=== PATIENT | female | born 1955 | race Caucasian/White ===

== ENCOUNTER → 2023-11-24 | Emergency (ER) | payer BC, OTHER ==
[~2023-11-24] MED LIST: CEFTRIAXONE 1000 MG/VIAL ONE; HYDROCODONE/APAP 10/325 TAB ONE; NA CHLORIDE 0.9% 50 ML ONE; ONDANSETRON 4 MG (ODT) TAB ONE; SMZ./TMP. 800/160 MG TABLET ONE
[2023-11-25 01:01] LABS: Absolute Lymphocytes (CBC) 0.8 K/uL (0.7-4.9); Hematocrit 23.8 % (36.0-45.0); Lymphocytes % 11.7 % (15.3-44.8); MCV 87.8 fL (80-100); MPV 7.2 fL (7.6-11.3); Platelets 194 thou/uL (152-406); RBC Red Blood Cell Count 2.71 M/uL (3.86-4.86)
[2023-11-25 01:03] LABS: Albumin 3.1 g/dL (3.4-5.0); Bilirubin Direct 0.2 mg/dL (0-0.2); Bilirubin Indirect, Calculated 0.3 mg/dL (0.2-0.8); Bilirubin Total 0.5 mg/dL (0.2-1.0); Potassium 3.6 mEq/L (3.5-5.1); Protein, Total 6.1 g/dL (6.4-8.2)
--- NOTE | 2023-11-25 01:50 | ER ---
Nurse's Notes [facility] Name: Clare Shah Age: 68 yrs Sex: Female : 1955 Arrival Date: 11/24/2023 Time: 23:40 Bed 14 Private MD: Diagnosis: Postoperative incisional pain, bilateral breast reduction with postoperative pain, postoperative incision cellulitis. Presentation: 11/24 23:50 Chief complaint: EMS states: patient had breast cancer surgery on Friday. This evening, tm6 site became tender to the touch, red, and hot. EMS temp 100.0F, BP 101/45. Coronavirus screen: Vaccine status: Client denies travel out of the [place] in the last 14 days. Ebola Screen: Patient negative for fever greater than or equal to 101.5 degrees Fahrenheit, and additional compatible Ebola Virus Disease symptoms Patient denies exposure to infectious person. Patient denies travel to an Ebola-affected area in the 21 days before illness onset. No symptoms or risks identified at this time. Initial Sepsis Screen: Does the patient meet any 2 criteria? No. Patient's initial sepsis screen is negative. Does the patient have a suspected source of infection? Yes: Skin breakdown/wound. Risk Assessment: Do you want to hurt yourself or someone else? Patient reports no desire to harm self or others. Onset of symptoms was November 24, 2023. 23:50 Method Of Arrival: EMS: [facility] tm6 23:50 Acuity: VICENTE 3 tm6 Triage Assessment: 23:56 General: Appears in no apparent distress. Behavior is calm, cooperative. Pain: tm6 Complains of pain in right breast and left breast Pain currently is 4 out of 10 on a pain scale. Aggravated by increased activity. EENT: No signs and/or symptoms were reported regarding the EENT system. Neuro: Level of Consciousness is awake, alert, obeys commands, Oriented to person, place, time, situation. Cardiovascular: Capillary refill < 3 seconds Patient's skin is warm and dry. Respiratory: Airway is patent Respiratory effort is even, unlabored, Respiratory pattern is regular, symmetrical. GI: Abdomen is round non-distended. : No signs and/or symptoms were reported regarding the genitourinary system. Derm: Skin temperature is warm Wound noted right breast and left breast Other: surgical wound Bruising that is bright red, dark purple. Musculoskeletal: No signs and/or symptoms reported regarding the musculoskeletal system. Historical: - Allergies: 23:55 Codeine; tm6 23:55 Tramadol HCl; tm6 23:55 Neosporin ([id number]); tm6 - PMHx: 23:55 breast cancer; Atrial fibrillation; tm6 - PSHx: 23:55 Cholecystectomy; tm6 23:56 gastric sleeve; ablation; Lumpectomy of breast; reduction of breast; tm6 - Immunization history:: Adult Immunizations up to date. - Social history:: Smoking status: Patient denies any tobacco usage or history of. Patient/guardian denies using alcohol. - Family history:: not pertinent. Screenin/09 00:00 [facility] ED Fall Risk Assessment (Adult) History of falling in the last 3 months, tm6 including since admission No falls in past 3 months (0 pts). Abuse screen: Denies threats or abuse. Denies injuries from another. Nutritional screening: No deficits noted. Tuberculosis screening: No symptoms or risk factors identified. Assessment: 00:00 Reassessment: see triage assessment. tm6 01:15 Reassessment: Patient and/or family updated on plan of care and expected duration. Pain tm6 level reassessed. Patient is alert, oriented x 3, equal unlabored respirations, skin warm/dry/pink. patient crying, pain at incision site. 01:58 Reassessment: Patient appears in no apparent distress at this time. Patient and/or tm6 family updated on plan of care and expected duration. Pain level reassessed. Vital Signs: 11/24 23:50 BP 134 / 43; Pulse 83; Resp 17; Temp 98.8(O); Pulse Ox 99% on R/A; Weight 99.79 kg; tm6 Height 5 ft. 5 in. ; Pain 4/10; 11/25 01:15 BP 157 / 59; Pulse 80; Pulse Ox 100% on R/A; Pain 10/10; tm6 01:58 BP 139 / 58; Pulse 83; Pulse Ox 100% ; Pain 3/10; tm6 11/24 23:50 Body Mass Index 36.61 (99.79 kg, 165.1 cm) tm6 11/24 23:50 Pain Scale: Adult tm6 11/25 01:15 Pain Scale: Adult tm6 01:58 Pain Scale: Adult tm6 ED Course: 11/24 23:49 Patient arrived in ED. tm6 23:51 [facility]liver [facility]C [facility] snw 23:51 Binu Alvarado MD is Attending Physician. snw 23:55 Triage completed. tm6 23:56 Arm band placed on right wrist. tm6 11/25 00:00 Patient has correct armband on for positive identification. Placed in gown. Bed in low tm6 position. Call light in reach. Side rails up X2. Provided Education on: plan of care. Client placed on continuous cardiac and pulse oximetry monitoring. NIBP monitoring applied. Noise minimized. 00:29 Inserted saline lock: 20 gauge in right antecubital area, using aseptic technique. tm6 00:29 surgical wound assessment. tm6 00:54 Leeann Angulo RN is Primary Nurse. tm6 02:17 IV discontinued, intact, bleeding controlled, No redness/swelling at site. Pressure tm6 dressing applied. Administered Medications: 01:14 Drug: Trimethoprim-Sulfamethoxazole PO (160 mg-800 mg (DS) 1 tablet PO once Route: PO; tm6 01:15 Drug: Rocephin - Rocephin (cefTRIAXone) IVPB 1 grams IVPB once over 30 mins; (mix in 50 tm6 mL NS) Route: IVPB; Infused Over: 30 mins; Site: right antecubital; 01:22 Drug: Ondansetron PO 4 mg PO once Route: PO; tm6 01:22 Drug: [place] PO 10 mg-325 mg 2 tabs PO once Route: PO; tm6 Medication: 00:00 VIS not applicable for this client. tm6 Outcome: 01:49 Discharge ordered by . sp4 02:16 Discharged to home ambulatory, waiting in [facility] for family tm6 02:16 Condition: stable 02:16 Discharge instructions given to patient, Instructed on discharge instructions, follow up and referral plans. medication usage, Demonstrated understanding of instructions, follow-up care, medications, Prescriptions given X 1, 02:17 Patient left the ED. tm6 Signatures: Shanelle Tolliver FNP-C [employer]ER-Csnw Binu Alvarado MD MD spLeeann Walters, ROBERTO RN tm6 Corrections: (The following items were deleted from the chart) 11/24 23:56 PMHx: gastric sleeve; tm6 tm6 23:56 PMHx: ablation; tm6 tm6
--- NOTE | 2023-11-25 01:50 | EDPHYS ---
Physician Documentation [facility] Name: Clare Shah Age: 68 yrs Sex: Female : 1955 Arrival Date: 11/24/2023 Time: 23:40 Bed 14 Private MD: ED Physician Binu Alvarado HPI: 11/24 23:53 This 68 yrs old Female presents to ER via Unassigned with complaints of Post sp4 Surgical Pain - concern for infection. 23:53 Pleasant 68-year-old female with history of bilateral mastectomy with breast reduction sp4 on 11/21/2023, presents with worsening bilateral pain and skin redness to bilateral breast reduction sites. Patient states that she developed a redness and worsening pain today after she was cleaning with soap and water.. Patient takes cephalexin 4 times a day postoperative antibiotic. Surgery was done at [facility]. Patient apparently 4 days postop. . Historical: - Allergies: 23:55 Codeine; tm6 23:55 Tramadol HCl; tm6 23:55 Neosporin ([id number]); tm6 - PMHx: 23:55 breast cancer; Atrial fibrillation; tm6 - PSHx: 23:55 Cholecystectomy; tm6 23:56 gastric sleeve; ablation; Lumpectomy of breast; reduction of breast; tm6 - Immunization history:: Adult Immunizations up to date. - Social history:: Smoking status: Patient denies any tobacco usage or history of. Patient/guardian denies using alcohol. - Family history:: not pertinent. ROS: 23:53 Constitutional: Negative for fever, chills, and weight loss, positive bilateral breast sp4 postoperative pain and bilateral skin redness 23:53 All other systems are negative, Exam: 23:53 Constitutional: This is a well developed, well nourished patient who is awake, alert, sp4 and in no acute distress. Head/Face: Normocephalic, atraumatic. Eyes: Pupils equal round and reactive to light, extra-ocular motions intact. Lids and lashes normal. Conjunctiva and sclera are not injected. Cornea within normal limits. Periorbital areas with no swelling, redness, or edema. ENT: Nares patent. No nasal discharge, no septal abnormalities noted. Tympanic membranes are normal and external auditory canals are clear. Oropharynx with no redness, swelling, or masses, exudates, or evidence of obstruction, uvula midline. Mucous membranes moist. Neck: Trachea midline, no thyromegaly or masses palpated, and no cervical lymphadenopathy. Supple, full range of motion without nuchal rigidity, or vertebral point tenderness. Chest/axilla: Normal chest wall appearance and motion. Nontender with no deformity. Bilateral breast reduction sites. Bilateral post operative incisional redness, swelling, bilateral post operative hematomas. Cardiovascular: Regular rate and rhythm with a normal S1 and S2. No gallops, murmurs, or rubs. Normal PMI, no JVD. No pulse deficits. Respiratory: Lungs have equal breath sounds bilaterally, clear to auscultation and percussion. No rales, rhonchi or wheezes noted. No increased work of breathing, no retractions or nasal flaring. Abdomen/GI: Soft, non-tender, with normal bowel sounds. No distension or tympany. No guarding or rebound. No evidence of tenderness throughout. Back: No spinal tenderness. No costovertebral tenderness. There is sacral decubitus ulcer that is covered by the wound VAC. Female : Normal external genitalia. Skin: Warm, dry with normal turgor. Normal color with no rashes, no lesions, and no evidence of cellulitis. MS/ Extremity: Pulses equal, no cyanosis. Neurovascular intact. Full, normal range of motion. Neuro: Awake and alert, GCS 15, oriented to person, place, time, and situation. Cranial nerves II-XII grossly intact. Motor strength 5/5 in all extremities. Sensory grossly intact. Psych: Awake, alert, with orientation to person, place and time. Behavior, mood, and affect are within normal limits Vital Signs: 23:50 BP 134 / 43; Pulse 83; Resp 17; Temp 98.8(O); Pulse Ox 99% on R/A; Weight 99.79 kg; tm6 Height 5 ft. 5 in. ; Pain 4/10; 11/25 01:15 BP 157 / 59; Pulse 80; Pulse Ox 100% on R/A; Pain 10/10; tm6 01:58 BP 139 / 58; Pulse 83; Pulse Ox 100% ; Pain 3/10; tm6 08 23:50 Body Mass Index 36.61 (99.79 kg, 165.1 cm) 6 11/24 23:50 Pain Scale: Adult tm6 11/25 01:15 Pain Scale: Adult tm6 01:58 Pain Scale: Adult tm6 MDM: 11/24 23:51 Patient medically screened. snw 11/25 01:46 Differential Diagnosis altered mental status, sepsis, flu, Post operative wound sp4 infection . Data reviewed: vital signs, nurses notes, lab test result(s), CBC, electrolytes, hepatic panel. Consideration of Admission/Observation Escalation of care including admission/observation considered. ED course: Patient presents with postoperative pain and redness to postop incisions bilaterally, associated with also some postoperative hematoma, at the site of bilateral breast reduction. Based on exam there is mild cellulitic changes to postoperative incisions but no major cellulitis. WBC normal. Advised patient to continue p.o. [place] at home and to continue cephalexin 500 mg every 6 hours. Will add Bactrim DS twice a day for 10 days. Will advise patient to call her surgeon at the [facility] to report on her postoperative pain.. . 11/24 23:52 Order name: Basic Metabolic Panel; Complete Time: 01:16 sp4 11/24 23:52 Order name: CBC with Diff; Complete Time: :16 sp4 11/24 23:52 Order name: LFT's; Complete Time: :16 sp4 11/24 23:53 Order name: Blood Culture Adult (2) sp4 11/24 23:52 Order name: IV Saline Lock; Complete Time: :15 sp4 11/24 23:52 Order name: Labs collected and sent; Complete Time: 15 sp4 11/24 23:52 Order name: O2 Per Protocol; Complete Time: 00:04 sp4 11/24 23:52 Order name: O2 Sat Monitoring; Complete Time: 00:04 sp4 Administered Medications: 01:14 Drug: Trimethoprim-Sulfamethoxazole PO (160 mg-800 mg (DS) 1 tablet PO once Route: PO; 6 01:15 Drug: Rocephin - Rocephin (cefTRIAXone) IVPB 1 grams IVPB once over 30 mins; (mix in 50 tm6 mL NS) Route: IVPB; Infused Over: 30 mins; Site: right antecubital; 01:22 Drug: Ondansetron PO 4 mg PO once Route: PO; tm6 01:22 Drug: [place] PO 10 mg-325 mg 2 tabs PO once Route: PO; tm6 Disposition Summary: 11/25/23 01:49 Discharge Ordered Notes: Location: Home sp4 Problem: new sp4 Symptoms: have improved sp4 Condition: Stable sp4 Diagnosis - Postoperative incisional pain, bilateral breast reduction with postoperative pain, sp4 postoperative incision cellulitis. Followup: sp4 - With: Private Physician - When: 1 - 2 days - Reason: Recheck today's complaints Discharge Instructions: - Discharge Summary Sheet sp4 - Incision Care, Adult, [id number] sp4 Forms: - Patient Portal Instructions sp4 Prescriptions: - Bactrim DS 800-160 mg Oral Tablet - take 1 tablet ORAL route every 12 hours for 10 days; 20 tablet; Refills: 0, sp4 Product Selection Permitted Signatures: Dispatcher [employer] EDMS Shanelle Tolliver FNP-C PROCEDURAL NURSE-Csnw Binu Alvarado MD MD sp4 KevLeeann srivastava RN RN tm6 Corrections: (The following items were deleted from the chart) 11/24 23:58 23:56 PMHx: gastric sleeve; tm6 tm6 23:58 23:56 PMHx: ablation; tm6 tm6
[2023-11-25 05:47] VITALS: TEMP 98.8
[2023-11-25 05:58] VITALS: BP 139/58; O2SAT 100
== END ==
LOC: ER 23:40
DX: T81.49XA Infection following a procedure, other surgical site, initial encounter (principal); Z98.890 Other specified postprocedural states; Z90.13 Acquired absence of bilateral breasts and nipples; Z85.3 Personal history of malignant neoplasm of breast; Z88.3 Allergy status to other anti-infective agents; Z88.5 Allergy status to narcotic agent
CPT/HCPCS: 36415

== ENCOUNTER → 2023-11-25 | Emergency (ER) | payer BC, OTHER ==
[~2023-11-25] MED LIST changes: -CEFTRIAXONE 1000 MG/VIAL ONE; +DIPHENHYDRAMINE 25 MG TAB/CAP ONE; +FAMOTIDINE 20 MG TAB ONE; -HYDROCODONE/APAP 10/325 TAB ONE; -NA CHLORIDE 0.9% 50 ML ONE; -ONDANSETRON 4 MG (ODT) TAB ONE; -SMZ./TMP. 800/160 MG TABLET ONE; +predniSONE 20 MG TAB ONE
--- NOTE | 2023-11-25 06:13 | ER ---
Nurse's Notes [facility] Name: Clare Shah Age: 68 yrs Sex: Female : 1955 Arrival Date: 11/25/2023 Time: 04:57 Bed DIS3 Private MD: Diagnosis: Acute allergic reaction to Opiate Presentation: 11/25 05:05 Chief complaint: Patient states: I started itching after taking that pain medicine when vc1 I was here earlier. Coronavirus screen: At this time, the client does not indicate any symptoms associated with coronavirus-19. Ebola Screen: Patient negative for fever greater than or equal to 101.5 degrees Fahrenheit, and additional compatible Ebola Virus Disease symptoms Patient denies exposure to infectious person. Patient denies travel to an Ebola-affected area in the 21 days before illness onset. No symptoms or risks identified at this time. Onset: The symptoms/episode began/occurred 2 hour(s) ago. Anaphylaxis evaluation, no signs or symptoms of anaphylaxis were noted. Initial Sepsis Screen: Does the patient meet any 2 criteria? No. Patient's initial sepsis screen is negative. Does the patient have a suspected source of infection? No. Patient's initial sepsis screen is negative. Risk Assessment: Do you want to hurt yourself or someone else? Patient reports no desire to harm self or others. Onset of symptoms was November 25, 2023. 05:05 Acuity: VICENTE 5 vc1 05:05 Method Of Arrival: Ambulatory vc1 Triage Assessment: 05:05 General: Appears in no apparent distress. comfortable, Behavior is calm, cooperative, vc1 appropriate for age. Pain: Denies pain. EENT: No deficits noted. No signs and/or symptoms were reported regarding the EENT system. Neuro: Level of Consciousness is awake, alert, obeys commands, Oriented to person, place, time, situation, Appropriate for age. 05:05 Cardiovascular: No deficits noted. Respiratory: Airway is patent Respiratory effort is vc1 even, unlabored, Respiratory pattern is regular, symmetrical. GI: No deficits noted. No signs and/or symptoms were reported involving the gastrointestinal system. : No deficits noted. No signs and/or symptoms were reported regarding the genitourinary system. Derm: Reports itching. Musculoskeletal: No deficits noted. No signs and/or symptoms reported regarding the musculoskeletal system. Historical: - Allergies: 05:05 Codeine; vc1 05:05 Neosporin ([id number]); vc1 05:05 Tramadol HCl; vc1 - PMHx: 05:05 Atrial fibrillation; breast cancer; vc1 - PSHx: 05:05 ablation; Cholecystectomy; gastric sleeve; Lumpectomy of breast; reduction of breast; vc1 - Immunization history:: Adult Immunizations up to date. - Social history:: Smoking status: Patient denies any tobacco usage or history of. - Family history:: not pertinent. Screenin:05 [facility] ED Fall Risk Assessment (Adult) History of falling in the last 3 months, vc1 including since admission No falls in past 3 months (0 pts) Confusion or Disorientation No (0 pts) Intoxicated or Sedated No (0 pts) Impaired Gait No (0 pts) Mobility Assist Device Used No (0 pt) Altered Elimination No (0 pt) Score/Fall Risk Level 0 - 2 = Low Risk Oriented to surroundings, Maintained a safe environment, Educated pt \T\ family on fall prevention, incl call for assistance when getting out of bed. Abuse screen: Denies threats or abuse. Nutritional screening: No deficits noted. Tuberculosis screening: No symptoms or risk factors identified. Vital Signs: 05:05 BP 138 / 59; Pulse 81; Resp 18; Temp 97; Pulse Ox 98% ; vc1 05:36 Weight 99.79 kg; vc1 ED Course: 04:58 Patient arrived in ED. jj6 05:04 Binu Alvarado MD is Attending Physician. sp4 05:05 Arm band placed on right wrist. vc1 05:05 Patient has correct armband on for positive identification. Placed in chair. vc1 05:28 Triage completed. vc1 06:59 No provider procedures requiring assistance completed. tm6 07:00 Provided Education on: n/a. tm6 07:00 Patient did not have IV access during this emergency room visit. tm6 Administered Medications: 05:17 Drug: Famotidine PO 20 mg PO once Route: PO; vc1 06:10 Follow up: Response: No adverse reaction; Marked relief of symptoms vc1 05:17 Drug: predniSONE PO 60 mg PO once Route: PO; vc1 06:10 Follow up: Response: No adverse reaction; Marked relief of symptoms vc1 05:18 Drug: diphenhydrAMINE PO 25 mg PO once Route: PO; vc1 06:10 Follow up: Response: No adverse reaction; Marked relief of symptoms vc1 Medication: 05:34 VIS not applicable for this client. vc1 Outcome: 06:12 Discharge ordered by . zachary 07:00 Discharged to home ambulatory, called [facility] tm6 07:00 Condition: stable 07:00 Discharge instructions given to patient, Instructed on discharge instructions, Demonstrated understanding of instructions, 07:00 Patient left the ED. tm6 Signatures: Sophia Florianj6 Jolene Cifuentes, RN RN vc1 Binu Alvarado MD MD sp4 Leeann Angulo RN RN tm6 Corrections: (The following items were deleted from the chart) 05:26 Chief complaint: Patient states: I started itching after taking that pain vc1 medicine when I was here earlier vc1 05:26 Coronavirus screen: At this time, the client does not indicate any symptoms vc1 associated with coronavirus-19. 1 05:26 Ebola Screen: Patient negative for fever greater than or equal to 101.5 degrees vc1 Fahrenheit, and additional compatible Ebola Virus Disease symptoms Patient denies exposure to infectious person. Patient denies travel to an Ebola-affected area in the 21 days before illness onset. No symptoms or risks identified at this time. 1 05:26 Onset: The symptoms/episode began/occurred 2 hour(s) ago, 1 1 05:26 Anaphylaxis evaluation, no signs or symptoms of anaphylaxis were noted 1 1 05:26 Initial Sepsis Screen: Does the patient meet any 2 criteria? No. Patient's vc1 initial sepsis screen is negative. Does the patient have a suspected source of infection? No. Patient's initial sepsis screen is negative. 1 05:26 Risk Assessment: Do you want to hurt yourself or someone else? Patient reports no vc1 desire to harm self or others. 1 05:26 Onset of symptoms was November 25, 2023 vc1 1 05:26 Method Of Arrival: Ambulatory 1 1 05:26 BP 138 / 59; Pulse 81bpm; Resp 18bpm; Pulse Ox 98%; Temp 97F; vc1 vc1 05:30 05:26 Acuity: VICENTE 5 vc1 vc1 05:35 05:25 Arm band placed on right wrist. vc1 vc1
--- NOTE | 2023-11-25 06:13 | EDPHYS ---
Physician Documentation [facility] Name: Clare Shah Age: 68 yrs Sex: Female : 1955 Arrival Date: 11/25/2023 Time: 04:57 Bed DIS3 Private MD: ED Physician Binu Alvarado HPI: 11/25 06:07 This 68 yrs old Female presents to ER via Ambulatory with complaints of sp4 Itching. 06:07 Patient presents with acute generalized itching after PO [place] for pain given earlier sp4 today for bilateral breast postoperative pain. . Historical: - Allergies: 05:05 Codeine; vc1 05:05 Neosporin ([id number]); vc1 05:05 Tramadol HCl; vc1 - PMHx: 05:05 Atrial fibrillation; breast cancer; vc1 - PSHx: 05:05 ablation; Cholecystectomy; gastric sleeve; Lumpectomy of breast; reduction of breast; vc1 - Immunization history:: Adult Immunizations up to date. - Social history:: Smoking status: Patient denies any tobacco usage or history of. - Family history:: not pertinent. ROS: 06:07 Constitutional: Negative for fever, chills, and weight loss, Positive for generalized sp4 itching. 06:07 All other systems are negative, Exam: 06:07 Constitutional: This is a well developed, well nourished patient who is awake, alert, sp4 and in no acute distress. Head/Face: Normocephalic, atraumatic. Eyes: Pupils equal round and reactive to light, extra-ocular motions intact. Lids and lashes normal. Conjunctiva and sclera are not injected. Cornea within normal limits. Periorbital areas with no swelling, redness, or edema. ENT: Nares patent. No nasal discharge, no septal abnormalities noted. Tympanic membranes are normal and external auditory canals are clear. Oropharynx with no redness, swelling, or masses, exudates, or evidence of obstruction, uvula midline. Mucous membranes moist. Neck: Trachea midline, no thyromegaly or masses palpated, and no cervical lymphadenopathy. Supple, full range of motion without nuchal rigidity, or vertebral point tenderness. Chest/axilla: Normal chest wall appearance and motion. Postoperative bilateral tender incisions after bilateral breast augmentation surgery. Cardiovascular: Regular rate and rhythm with a normal S1 and S2. No gallops, murmurs, or rubs. Normal PMI, no JVD. No pulse deficits. Respiratory: Lungs have equal breath sounds bilaterally, clear to auscultation and percussion. No rales, rhonchi or wheezes noted. No increased work of breathing, no retractions or nasal flaring. Abdomen/GI: Soft, non-tender, with normal bowel sounds. No distension or tympany. No guarding or rebound. No evidence of tenderness throughout. Back: No spinal tenderness. No costovertebral tenderness. There is sacral decubitus ulcer that is covered by the wound VAC. Skin: Warm, dry with normal turgor. Normal color with no rashes, no lesions, and no evidence of cellulitis. MS/ Extremity: Pulses equal, no cyanosis. Neurovascular intact. Full, normal range of motion. Neuro: Awake and alert, GCS 15, oriented to person, place, time, and situation. Cranial nerves II-XII grossly intact. Motor strength 5/5 in all extremities. Sensory grossly intact. Psych: Awake, alert, with orientation to person, place and time. Behavior, mood, and affect are within normal limits Vital Signs: 05:05 BP 138 / 59; Pulse 81; Resp 18; Temp 97; Pulse Ox 98% ; vc1 05:36 Weight 99.79 kg; vc1 MDM: 05:04 Patient medically screened. sp4 06:07 Differential Diagnosis altered mental status, sepsis, flu, Allergic reaction , sp4 Dermatitis . Data reviewed: vital signs, nurses notes, old medical records. ED course: Patient stable for discharge home with PO Benadryl PRN OTC Q 6 hours . Administered Medications: 05:17 Drug: Famotidine PO 20 mg PO once Route: PO; vc1 06:10 Follow up: Response: No adverse reaction; Marked relief of symptoms vc1 05:17 Drug: predniSONE PO 60 mg PO once Route: PO; vc1 06:10 Follow up: Response: No adverse reaction; Marked relief of symptoms vc1 05:18 Drug: diphenhydrAMINE PO 25 mg PO once Route: PO; vc1 06:10 Follow up: Response: No adverse reaction; Marked relief of symptoms vc1 Disposition Summary: 11/25/23 06:12 Discharge Ordered Notes: Take Benadryl 25 mg every 6 hours OTC as needed for itching Location: Home sp4 Problem: new sp4 Symptoms: have improved sp4 Condition: Stable sp4 Diagnosis - Acute allergic reaction to Opiate sp4 Followup: sp4 - With: Private Physician - When: 1 - 2 days - Reason: Recheck today's complaints Discharge Instructions: - Discharge Summary Sheet sp4 - Medical Screening Exam sp4 Forms: - Patient Portal Instructions sp4 Signatures: Jolene Cifuentes RN RN vc1 Binu Alvarado MD MD sp4
[2023-11-25 08:27] VITALS: BP 138/59; TEMP 97; O2SAT 98
== END ==
LOC: ER 04:57
DX: L29.9 Pruritus, unspecified (principal); Z88.5 Allergy status to narcotic agent
CPT/HCPCS: 99283; J7512